=== PATIENT | female | born 1960 | race Caucasian/White ===

== ENCOUNTER 2018-05-25 09:13 | Emergency (ER) | payer OTHER ==
[2018-05-25 11:07] VITALS: BP 155/90
--- NOTE | 2018-05-25 11:12 | UC ---
Lower Extremity/Ankle HPI - HPI Summary HPI Summary: Patient presents to urgent care with discomfort in her posterior left knee. Patient states she's had some discomfort the last 2-3 days. Patient states it just has felt like a pulling discomfort. Patient states she's been limping because of that. Today patient was walking up the stairs when she felt this wasn't sudden pop and pain in her left posterior knee and upper calf. Patient states she's been unable to walk on it since. Patient has not taken anything for pain she did not eat anything. Patient apply ice. Patient denies radiation of the pain on the upper calf. No paresthesias of the foot. No bruising. Patient is on any anticoagulation. Patient without history of same. Patient's medications reviewed this visit. - History of Current Complaint Chief Complaint: UCLowerExtremity Stated Complaint: LEFT KNEE INJURY Time Seen by Provider: 05/25/18 11:10 Hx Obtained From: Patient Hx Last Menstrual Period: 11/2014 Pain Intensity: 5 - Allergies/Home Medications Allergies/Adverse Reactions: Allergies Allergy/AdvReac Type Severity Reaction Status Date / Time No Known Allergies Allergy Verified 05/25/18 11:04 Home Medications: Home Medications Levothyroxine TAB* [Synthroid TAB*] 137 mcg PO DAILY 05/25/18 [History Confirmed 05/25/18] PARoxetine HCL TAB* [Paxil TAB*] 20 mg PO DAILY 05/25/18 [History Confirmed ] PMH/Surg Hx/FS Hx/Imm Hx Previously Healthy: Yes - Surgical History Surgical History: None - Family History Known Family History: Positive: Non-Contributory Family History: Dad with complications of rheumatic heart valve disease - Social History Occupation: Employed Full-time Lives: With Family Alcohol Use: Occasionally Alcohol Amount: 5 or 6 beers / week Substance Use Type: None Smoking Status (MU): Former Smoker When Did the Patient Quit Smoking/Using Tobacco: 01/2001 Review of Systems All Other Systems Reviewed And Are Negative: Yes Skin: Positive: Negative Musculoskeletal: Positive: Other: - left posterior knee pain Physical Exam - Summary Physical Exam Summary: Vital Signs Reviewed: Yes A+Ox3, mild discomfort, unable to ambulate Eyes: Conjunctiva Clear, ENT: Hearing grossly normal Neck: Positive: Supple Respiratory: Positive: No respiratory distress, No accessory muscle use Cardiovascular: 2+ popliteal, PT CBT < 2 sec abd soft + BS nt/nd no guarding, no distension Musculoskeletal Exam: unable to ambulate + SLE with pain posterior knee with full extension + flex.ext ankle + great toe extensions neg laxity lateral joint line neg anterior/posterior drawer + TTP popliteal fossa + mild TTP superior calf no midcalf pain Neurological: Positive: Alert, + sensation throughout Psychological: Positive: Normal Response To Family Skin: Positive: no rash, no ecchymosis Triage Information Reviewed: Yes Vital Signs: Initial Vital Signs Temp 98.1 F 05/25/18 11:02 Pulse 75 05/25/18 11:02 Resp 17 05/25/18 11:02 BP 155/90 05/25/18 11:02 Pulse Ox 98 05/25/18 11:02 Diagnostics - Radiology No standard instances Radiology Interpretation Completed By: Radiologist - Patient Name: RADHA MADISON Medical Record#: [id number] Ordering Physician: Vielka Mandel MD Acct.#: [id number] : 1960 Age: 57 Sex: F Location: [facility] Exam Date: 05/25/181144 ADM Status: REG ER Order Information: VL LOWER EXT VEINS LEFT Accession Number: [id number] CPT: 97443 HISTORY: DVT vs bakers cyst, pain prox calf , public health representative poplite COMPARISONS: None relevant TECHNIQUE: Multiple transverse and longitudinal ultrasound images were obtained of the left lower extremity from the level of the common femoral vein inferiorly through to the infrapopliteal veins using grayscale, color Doppler, and spectral Doppler imaging with and without compression and with augmentation. Comparison images were obtained of the contralateral common femoral vein. FINDINGS: VEINS: The venous system of the left lower extremity is compressible throughout its course , with normal flow on color Doppler imaging and normal response to augmentation on spectral Doppler imaging. SOFT TISSUES: Unremarkable. OTHER FINDINGS: No popliteal fossa cyst is identified to suggest a Wilkes's cyst. IMPRESSION: NO LEFT LOWER EXTREMITY DEEP VEIN THROMBOSIS <Electronically signed by Jeremiah Lema MD in OV > 05/25/181221 Dictated By: Jeremiah Lema MD Dictated Date/Time: 1221 Transcribed Date/Time: 05/25/181221 Copy to: CC:Vielka Mandel MD; Donald Mckeon MD Imaging - [facility] Imaging - [facility] [address] [place] [address] ph ) ph ([phone]) ph ([phone]) This report is only to be considered final once signed by the Provider(s) as displayed in the "< Electronically Signed by >" field (s). Absence of a signature indicates the report is in a draft status and still needs to be finalized. In the event this document was created by someone other than the signing Provider, the individual initiating the document will be listed in the "Entered by:" or "Dictated by:" graves. 1 of 1 Patient Name: RADHA MADISON Medical Record#: [id number] Ordering Physician: Vielka Mandel MD Acct.#: [id number] : 1960 Age: 57 Sex: F Location: [facility] Exam Date: 05/25/181108 ADM Status: REG ER Order Information: KNEE LEFT 4+ VWS Accession Number: [id number] CPT: 84483 HISTORY: pain COMPARISONS: None VIEWS: 4 , Frontal, lateral, axial, and oblique views of the left knee FINDINGS: BONE DENSITY: Normal. BONES: There is no displaced fracture. JOINTS: There is mild tricompartmental osteoarthritis. ALIGNMENT: There is no dislocation. SOFT TISSUES: Unremarkable. OTHER FINDINGS: None. IMPRESSION: MILD OSTEOARTHRITIS. NO ACUTE OSSEOUS INJURY. IF SYMPTOMS PERSIST, RECOMMEND REPEAT IMAGING. <Electronically signed by Jeremiah Lema MD in OV> 05/25/181224 Dictated By: Jeremiah Lema MD Dictated Date/Time: 05/25/18 1225 Transcribed Date/Time: 05/25/18 1224 Copy to: CC:Vielka Mandel MD; Donald Mckeon MD Imaging - [facility] Imaging - [facility] Imaging - [facility] [address] [place] [id number] [place], [place] [id number] [place] [id number] [place] [address] ph ([phone]) ph ([phone]) ph ([phone]) This report is only to be considered final once signed by the Provider(s) as displayed in the "<Electronically Signed by > " field (s). Absence of a signature indicates the report is in a draft status and still needs to be finalized. In the event this document was created by someone other than the signing Provider, the individual initiating the document will be listed in the "Entered by:" or "Dictated by:" graves. 1 of 1 Re-Evaluation - Re-Evaluation First Eval Comment: Reviewed imaging with patient. Ganga and crutches. Ice. Work note. Motrin/tunnel. Patient to follow up with sports medicine or orthopedics. Both contacts given. Patient comfortable in agreement with plan. Lower Extremity Course/Dx - Course Course Of Treatment: Patient presents with progressive discomfort the culminating a popping sound day of her left posterior knee. Patient without any paresthesias. Patient with pain with range of motion. On exam tenderness focused to the popliteal fossa and proximal part of the calf. Patient distal CSM intact. Differential includes sprain or strain, Wilkes's cyst, low suspicion for DVT. We'll image with plain film as well as ultrasound. Anticipate we'll place an Ganga wrap crutches ice/elevate Motrin. Patient declined analgesia here patient patient comfortable in agreement with plan. - Differential Dx/Diagnosis Provider Diagnosis: Left knee pain Discharge - Sign-Out/Discharge Documenting (check all that apply): Patient Departure All imaging exams completed and their final reports reviewed: Yes - Discharge Plan Condition: Stable Disposition: HOME Patient Education Materials: Knee Sprain (ED), Knee Pain (ED) Forms: *Work Release Referrals: [facility] [Provider Group] Phil Hernandez MD [Medical Doctor] - Donald Mckeon MD [Primary Care Provider] - Additional Instructions: -wear ganga wrap for comfort and support -apply ice (20 min at a time) every 2-3 hours for the next 2 days -use crutches until you can walk normally without a limp -Elevate your leg - this will help with swelling and pain - Alternate ibuprofen (advil, Motrin) 600mg and tylenol every 3 hours for pain. Take with food. Do NOT take for more than 4-5 days -Contact your doctor, the sports medicine group, or the community outreach specialist to arrange a follow-up appointment later this week. Contact your doctor or return with questions or concerns - Billing Disposition and Condition Condition: STABLE Disposition: Home
== END 2018-05-25 12:50 | disposition home or self-care (01) ==
LOC: UCCORT 09:13
DX: M25.561 Pain in right knee (principal); Z87.891 Personal history of nicotine dependence
CPT/HCPCS: 99212; G0463